=== PATIENT | female | born 1950 | race Caucasian/White ===

== ENCOUNTER → 2016-11-20 | Outpatient (CLI) | payer OTHER ==
--- NOTE | 2016-11-21 09:36 | MM ---
Reason for exam: screening (asymptomatic). Last mammogram was performed 1 year ago. History: Patient is postmenopausal, has history of breast cancer at age 44, and is nulliparous. Implant in the left breast, July 2010. Saline implant in the left breast, November 1995. Mastectomy of the left breast, 1994. Excisional biopsy of the left breast. Took hormonal contraceptives for 5 years beginning at age 30. Physical Findings: A clinical breast exam by your physician is recommended on an annual basis and results should be correlated with mammographic findings. MG 3D Scr Toby Unilateral W/Cad CC, MLO, and XCCL view(s) were taken of the right breast. Prior study comparison: November 09, 2015, right breast MG 3d diag mammo w/cad RT. November 08, 2014, right breast MG diagnostic mammo RT w CAD. The breast tissue is heterogeneously dense. This may lower the sensitivity of mammography. No significant changes when compared with prior studies. ASSESSMENT: Benign, BI-RAD 2 RECOMMENDATION: Routine screening mammogram of the right breast in 1 year.
== END | disposition home or self-care (01) ==
LOC: RADMAMWWP 11:00
PROVIDERS: ATTEND Family Medicine
DX: Z12.31 Encounter for screening mammogram for malignant neoplasm of breast (principal); Z80.3 Family history of malignant neoplasm of breast; Z98.82 Breast implant status
CPT/HCPCS: 77063; G0202

== ENCOUNTER → 2018-03-04 | Outpatient (CLI) | payer OTHER ==
--- NOTE | 2018-03-05 14:05 | MM ---
Reason for exam: screening (asymptomatic). Last mammogram was performed 1 year and 3 months ago. History: Patient is postmenopausal, has history of breast cancer at age 44, and is nulliparous. Implant in the left breast, July 2010. Saline implant in the left breast, November 1995. Mastectomy of the left breast, 1994. Excisional biopsy of the left breast. Took hormonal contraceptives for 5 years beginning at age 30. Physical Findings: A clinical breast exam by your physician is recommended on an annual basis and results should be correlated with mammographic findings. MG Screen Toby Unilateral W/Cad Bilateral CC and MLO view(s) were taken. Prior study comparison: November 20, 2016, right breast MG 3d scr toby unilateral w/cad. November 09, 2015, right breast MG 3d diag mammo w/cad RT. The breast tissue is heterogeneously dense. This may lower the sensitivity of mammography. No suspicious abnormality. ASSESSMENT: Negative, BI-RAD 1 RECOMMENDATION: Routine screening mammogram of both breasts in 1 year.
== END | disposition home or self-care (01) ==
LOC: RADMAMWWP 12:58
PROVIDERS: ATTEND Family Medicine
DX: Z12.31 Encounter for screening mammogram for malignant neoplasm of breast (principal); Z90.12 Acquired absence of left breast and nipple
CPT/HCPCS: 77067

== ENCOUNTER 2018-09-09 12:13 | Day surgery (SDC) | payer MEDICARE, OTHER ==
[2018-09-05 15:15] VITALS: BMI 21.7
[~2018-09-09 12:13] MED LIST: LACTATED RINGERS 1,000 ML IV SCH; LIDOCAINE 1% 20 ML VIAL (10MG/ML) FOR IV START INTRADERMA PRN; MIDAZOLAM (PF) 2 MG/2 ML VIAL IV PRN
[2018-09-09 13:07] VITALS: TEMP 98
[2018-09-09] MEDS ORDERED: PROPOFOL 10 MG/ML 20 ML VIAL IV ONE (14:02)
[2018-09-09 14:36] VITALS: RESP 16
[2018-09-09 14:57] VITALS: PULSE 73
[2018-09-09] MEDS ORDERED: ENALAPRILAT 1.25 MG/ML 1 ML VIAL IV ONE (15:19)
--- NOTE | 2018-09-09 15:30 | P.PCN ---
Date of Procedure: 09/09/18 Procedure(s) Performed: Procedure: Total colonoscopy. Preoperative diagnosis: History of polyps. Postoperative diagnosis: Less than ideal preparation, however, exam to the cecum within normal limits. Preparation: HalfLytely prep. Sedation: Was provided by anesthesia. Brief clinical history: The patient is a 67-year-old female who is scheduled for this evaluation because of history of flat tubular adenoma that was removed piecemeal by snare polypectomy in August 2017. That was during her hospitalization for severe segmental colitis that involved the sigmoid from 20- 40 cm. The patient was recommended repeat exam in one year. She is doing well at this time. Procedure: With the patient on her left lateral decubitus position and after informed consent and adequate sedation, the perianal area was inspected and it did not show any fissures or fistulas. There were no masses felt on digital rectal examination. The Olympus CFH 190L video colonoscope was then inserted in the rectum in the usual fashion and advanced to the cecum. Unfortunately, the preparation was poor and I spent a significant amount of time cleansing the bowel wall. I was satisfied that the right colon was cleansed thoroughly and I did not see any residual polyp tissue or new polyps. Because of the poor preparation, I cannot rule out with certainty the presence of small polyps or superficial pathology on this exam. No obvious large polyps, tumors or diverticular disease or any obvious abnormalities were noted. I retroflexed the endoscope in the rectum before the endoscope was withdrawn. The patient tolerated the procedure well. Plan: I summarized the findings to the patient and her . I am recommending repeat exam in 2-3 years and would consider a 2 day prep at that time.
[2018-09-09 15:45] VITALS: BP 128/71
== END 2018-09-09 15:56 | disposition home or self-care (01) ==
LOC: ORWHC2ENDO 12:13
DX: Z12.11 Encounter for screening for malignant neoplasm of colon (principal); K21.9 Gastro-esophageal reflux disease without esophagitis; E78.5 Hyperlipidemia, unspecified; M19.90 Unspecified osteoarthritis, unspecified site; F32.9 Major depressive disorder, single episode, unspecified; F41.9 Anxiety disorder, unspecified; Z79.899 Other long term (current) drug therapy; Z96.643 Presence of artificial hip joint, bilateral; Z88.5 Allergy status to narcotic agent; Z91.041 Radiographic dye allergy status; Z79.891 Long term (current) use of opiate analgesic; Z86.010 Personal history of colon polyps
CPT/HCPCS: J2704; G0105; 45378

== ENCOUNTER → 2019-03-25 | Outpatient (CLI) | payer MEDICARE ==
--- NOTE | 2019-03-25 22:01 | BD ---
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 Menopause before 45: YES RISK FACTORS HISTORY OF: Surgery to Spine/Hip(right/left)/Wrist (right/left): COLE HIP REPLACEMENT When: 2017 AND 2012 Family History of Osteoporosis: YES Active: YES Postmenopausal woman: AGE 47 MEDICATIONS: Additional Medications: PRILOSEC, ZOCOR, PAXIL Additional History: EXAM MEASUREMENTS: Bone mineral densitometry was performed using the [employer] System. Bone mineral density as measured about the Lumbar spine is: ----- L1-L4(G/cm2): 1.239 T Score Values are as follows: ----- L2: -0.5 ----- L3: 1.3 ----- L4: 1.6 ----- L1-L4: 0.5 Bone mineral density has: INCREASED 4.3 % since study of: 2016 Bone mineral density about the L Wrist (g/cm2): 0.442 T Score values are as follows: -----Dist. R+U: -2.9 -----Prox. R+U: -2.5 -----Radius total: -3.9 FIRST TIME WRIST HAS BEEN DONE IMPRESSION: Osteoporosis (T Score less than -2.5) as indicated by T score values in the left wrist. There is increased fracture risk and therapy is usually indicated based on age. Re-Screen 1-2 years. NOTE: T-SCORE=SD OF THE YOUNG ADULT MEAN.
--- NOTE | 2019-03-27 07:56 | MM ---
Reason for exam: screening (asymptomatic). Last mammogram was performed 1 year and 1 month ago. History: Patient is postmenopausal, has history of breast cancer at age 44, and is nulliparous. Implant in the left breast, July 2010. Saline implant in the left breast, November 1995. Mastectomy of the left breast, 1994. Excisional biopsy of the left breast. Took hormonal contraceptives for 5 years beginning at age 30. Physical Findings: A clinical breast exam by your physician is recommended on an annual basis and results should be correlated with mammographic findings. MG Screen Toby Unilateral W/Cad Bilateral CC and MLO view(s) were taken. Prior study comparison: March 04, 2018, MG screen toby unilateral w/cad. November 20, 2016, right breast MG 3d scr toby unilateral w/cad. The breast tissue is heterogeneously dense. This may lower the sensitivity of mammography. No significant changes when compared with prior studies. ASSESSMENT: Negative, BI-RAD 1 RECOMMENDATION: Follow-up diagnostic mammogram of the right breast in 1 year.
== END | disposition home or self-care (01) ==
LOC: RADMAMWWP 14:29
PROVIDERS: ATTEND Family Medicine
DX: Z12.31 Encounter for screening mammogram for malignant neoplasm of breast (principal); M81.0 Age-related osteoporosis without current pathological fracture
CPT/HCPCS: 77067; 77080

== ENCOUNTER → 2020-03-04 | Outpatient (CLI) | payer MEDICARE ==
[2020-03-04 11:06] LABS: HCT 42.9 % (34.0-46.0); HGB 14.1 gm/dL (11.4-16.0); MCH 29.9 pg (25.0-35.0); MCHC 32.8 g/dL (31.0-37.0); MCV 91.2 fL (80.0-100.0); Mean Platelet Volume 6.3; Platelet Count 306 k/uL (150-450); RDW 12.4 % (11.5-15.5); WBC 9.3 k/uL (3.8-10.6)
[2020-03-04 16:53] LABS: African American GFR (CKD) 103.9 (60.0-200.0); Albumin/Globulin Ratio 2.63 (1.60-3.17); Anion Gap 11.3 mmol/L (4.00-12.00); BUN/Creat Ratio 24.29 Ratio (12.00-20.00); Carbon Dioxide 25.7 mmol/L (21.6-31.8); Chol/HDL Ratio 3.17; Globulin 1.9 g/dL (1.6-3.3); LDL Cholesterol,Calculated 68.2 mg/dL (0.0-131.0); Non-African American GFR(CKD) 89.7 (60.0-200.0); Potassium 4.4 mmol/L (3.5-5.5); Total Protein 6.9 g/dL (6.2-8.2); VLDL Calculation 33.8 mg/dL (5.00-40.00)
== END | disposition home or self-care (01) ==
LOC: LABWHC1 09:09
PROVIDERS: ATTEND Family Medicine
DX: Z00.00 Encounter for general adult medical examination without abnormal findings (principal); E78.00 Pure hypercholesterolemia, unspecified; Z13.220 Encounter for screening for lipoid disorders
CPT/HCPCS: 36415; 80053; 80061; 84443; 85027

== ENCOUNTER → 2020-04-08 | Outpatient (CLI) | payer MEDICARE ==
--- NOTE | 2020-04-08 11:48 | MM ---
Reason for exam: clinical finding. Last mammogram was performed 1 year ago. History: Patient is postmenopausal, has history of breast cancer at age 44, and is nulliparous. Implant in the left breast, July 2010. Saline implant in the left breast, November 1995. Mastectomy of the left breast, 1994. Excisional biopsy of the left breast. Took hormonal contraceptives for 5 years beginning at age 30. Physical Findings: Nurse Summary: 0.5 x 0.5cm nodule in the right breast at 10 o'clock (nurse ts). MG 3D Diag Mammo W/Cad RT CC, MLO, and XCCL view(s) were taken of the right breast. Prior study comparison: March 25, 2019, bilateral MG screen sonali unilateral w/cad. March 04, 2018, MG screen sonali unilateral w/cad. The breast tissue is heterogeneously dense. This may lower the sensitivity of mammography. There is no discrete abnormality including area of concern. These results were verbally communicated with the patient and result sheet given to the patient on 04/08/20. ASSESSMENT: Incomplete: need additional imaging evaluation, BI-RAD 0 RECOMMENDATION: Ultrasound of the right breast. Manage patient on a clinical basis.
--- NOTE | 2020-04-08 11:49 | USB ---
Reason for exam: additional evaluation requested from abnormal screening. History: Patient is postmenopausal, has history of breast cancer at age 44, and is nulliparous. Implant in the left breast, July 2010. Saline implant in the left breast, November 1995. Mastectomy of the left breast, 1994. Excisional biopsy of the left breast. Took hormonal contraceptives for 5 years beginning at age 30. US Breast Limited RT Right limited breast ultrasound including focal area of concern, retroareolar and axilla demonstrates no cystic or solid lesion seen. These results were verbally communicated with the patient and result sheet given to the patient on 04/08/20. ASSESSMENT: Negative, BI-RAD 1 RECOMMENDATION: Follow-up diagnostic mammogram of the right breast in 1 year.
== END | disposition home or self-care (01) ==
LOC: RADMAMWWP 10:17
PROVIDERS: ATTEND Family Medicine
DX: N63.31 Unspecified lump in axillary tail of the right breast (principal)
CPT/HCPCS: 77065; 76642; G0279; 77061

== ENCOUNTER → 2020-09-27 | Outpatient (CLI) | payer MEDICARE ==
--- NOTE | 2020-09-27 15:06 | MR ---
EXAMINATION TYPE: MR cervical spine wo con DATE OF EXAM: 09/27/2020 COMPARISON: None HISTORY: Neck pain, LUE weakness, limited ROM CONTRAST: Performed utilizing 0 mL intravenous gadolinium contrast. TECHNIQUE: Multiplanar multiecho imaging on a 3.0 Charis magnet is performed through the cervical spin e. FINDINGS: The craniovertebral junction is normal. There is a mild retrolisthesis of C5 on C6 and C6 o n C7. Disc uncovering at these levels has moderate anterior thecal sac compression. Cord contact is p resent. Cord deformity is not evident. Degenerative disc changes and loss of disc height is present C5-6 C6-7. There is mild disc bulging C2-C3 with left paracentral thecal sac compression. No cord contact is norm dent. Small central protrusion is present C4-5 with anterior thecal sac contact. No cord contact or s prieto canal stenosis is present Uncovertebral joint hypertrophy is present C6-7 with bilateral moderate foraminal narrowing. IMPRESSIONS: 1. Grade 1 retrolisthesis of C5 on C6 and C6 on C7. 2. Disc uncovering at C5-6 C6-7 has moderate anterior thecal sac compression. Cord contact is present C5-6 without cord deformity. 3. Degenerative disc changes C5-6 and C6-7. 4. Moderate Foraminal narrowing predominantly C6-7 due to uncovertebral joint hypertrophy.
== END | disposition home or self-care (01) ==
LOC: RADMRIMAIN 11:07
PROVIDERS: ATTEND Orthopaedic Surgery
DX: M48.02 Spinal stenosis, cervical region (principal); M43.12 Spondylolisthesis, cervical region; M50.322 Other cervical disc degeneration at C5-C6 level; G95.29 Other cord compression; M89.38 Hypertrophy of bone, other site
CPT/HCPCS: 72141

== ENCOUNTER → 2021-04-27 | Outpatient (CLI) | payer MEDICARE ==
--- NOTE | 2021-04-28 14:12 | MM ---
Reason for exam: additional evaluation requested from prior study. Last mammogram was performed 1 year and 1 month ago. History: Patient is postmenopausal, has history of breast cancer at age 44, and is nulliparous. Implant in the left breast, July 2010. Saline implant in the left breast, November 1995. Mastectomy of the left breast, 1994. Excisional biopsy of the left breast. Took hormonal contraceptives for 5 years beginning at age 30. Physical Findings: Nurse did not find any significant physical abnormalities on exam. MG 3D Diag Mammo W/Cad RT CC and MLO view(s) were taken of the right breast. Prior study comparison: April 08, 2020, right breast MG 3d diag mammo w/cad RT. March 25, 2019, bilateral MG screen sonali unilateral w/cad. March 04, 2018, MG screen sonali unilateral w/cad. November 20, 2016, right breast MG 3d scr sonali unilateral w/cad. The breast tissue is heterogeneously dense. This may lower the sensitivity of mammography. Subareolar right MLO asymmetric density disperses on additional views. These results were verbally communicated with the patient and result sheet given to the patient on 04/27/21. ASSESSMENT: Negative, BI-RAD 1 RECOMMENDATION: Follow-up diagnostic mammogram of the right breast in 1 year.
== END | disposition home or self-care (01) ==
LOC: RADMAMWWP 15:02
PROVIDERS: ATTEND Family Medicine
DX: N63.31 Unspecified lump in axillary tail of the right breast (principal)
CPT/HCPCS: 77065; G0279; 77061

== ENCOUNTER → 2021-06-07 | Outpatient (CLI) | payer MEDICARE ==
--- NOTE | 2021-06-07 13:26 | BD ---
EXAMINATION TYPE: Axial Bone Density DATE OF EXAM: 06/07/2021 COMPARISON: 03/25/2019 CLINICAL HISTORY: Height: 60.5 IN Weight: 117 LBS FRAX RISK QUESTIONS: History of Fracture in Adulthood: LT SHOULDER 2015 Secondary Osteoporosis: 3. Menopause before 45: AGE 45 RISK FACTORS HISTORY OF: Surgery to Hip(COLE): When: 2012 AND 2017 Family History of Osteoporosis: MOTHER/ AUNTS, GRANDMOTHER Active: YES Postmenopausal woman: AGE 44 MEDICATIONS: Osteoporosis Medications: NOT NOW Which medication: Fosamax How Lon YEARS Additional Medications: CALCIUM, CENTRUM SILVER, FISH OIL, TYLENOL ARTHRITIS, PRILOSEC,ZOCOR, AMBERON Additional History: BREAST CANCER AGE 44 EXAM MEASUREMENTS: Bone mineral densitometry was performed using the [employer] System. Bone mineral density as measured about the Lumbar spine is: ----- L1-L4(G/cm2): 1.267 T Score Values are as follows: ----- L2: 0.6 ----- L3: 1.2 ----- L4: 1.2 ----- L1-L4: 0.7 Bone mineral density has: Increased 1.6% since study of: 03/25/2019 Bone mineral density about the L Wrist (g/cm2): 0.422 T Score values are as follows: -----Dist. R+U: -4.4 -----Prox. R+U: -3.1 -----Radius total: -4.2 Bone mineral density has: Decreased -8.2% since study of: 03/25/2019 IMPRESSION: Osteoporosis about the wrist. NOTE: T-SCORE=SD OF THE YOUNG ADULT MEAN.
== END | disposition home or self-care (01) ==
LOC: RADBDWWP 10:41
PROVIDERS: ATTEND Family Medicine
DX: M81.0 Age-related osteoporosis without current pathological fracture (principal)
CPT/HCPCS: 77080

== ENCOUNTER → 2021-06-20 | Outpatient (CLI) | payer MEDICARE ==
--- NOTE | 2021-06-20 15:10 | ECHOS ---
STRESS ECHOCARDIOGRAM DATE OF SERVICE: 06/20/21 INDICATIONS: Chest pain BASELINE HEART RATE: 83 BASELINE BLOOD PRESSURE: 121/66 MAXIMUM HEART RATE: 145 MAXIMUM BLOOD PRESSURE: 169/79 85% MPHR: 129 100% MPHR: 152 METS: 6.1 MAXIMUM STAGE REACHED: 3 TOTAL EXERCISE TIME: 8 min 3 sec RESULTS: Baseline rhythm is sinus mechanism, rate of 83, normal axis and intervals. Occasional PVCs. Nonspecific ST-T wave changes. Baseline blood pressure 121/61mmHg. Patient exercised on Zac protocol for 8 minutes 3 seconds reaching peak rate of 145 beats per minute which is equal to 95% of maximum predicted heart rate. Peak blood pressure 169/79 mmHg. Test was terminated secondary to fatigue. There were no chest pain. Electrocardiograph monitoring revealed no evidence of diagnostic ischemic ST deviation. Frequent single PVCs were noted. FINDINGS: Baseline echocardiogram revealed normal wall thickening and motion. At peak exercise, there was normal wall motion augmentation with no hypokinesis or dyskinesis. CONCLUSION: 1. Average exercise tolerance with normal electrographic response to exercise and frequent single PVCs. 2. Normal stress echocardiogram with no evidence of stress-induced ischemia. MMODL / IJN: [id number] /
== END | disposition home or self-care (01) ==
LOC: RADNMMAIN 09:03
PROVIDERS: ATTEND Family Medicine
DX: R07.9 Chest pain, unspecified (principal)
CPT/HCPCS: 93351

== ENCOUNTER → 2022-04-12 | Outpatient (CLI) | payer MEDICARE | END | disposition home or self-care (01) | LOC: LABWHC1 14:38 | PROVIDERS: ATTEND Family Medicine | DX: G47.01 Insomnia due to medical condition (principal); M81.0 Age-related osteoporosis without current pathological fracture | CPT/HCPCS: 36415; 82306; 82607 ==

== ENCOUNTER → 2022-05-02 | Outpatient (CLI) | payer MEDICARE ==
--- NOTE | 2022-05-02 11:40 | MM ---
Reason for Exam: Follow-up at short interval from prior study. Last mammogram was performed 1 year(s) and 1 month(s) ago. Patient History: Menarche at age 15. Patient has no children. Postmenopausal. Breast cancer, age 44. Hormonal Contraceptives for 5 years from age 30 until age 35. 1994, Mastectomy on the Left side. Excisional Biopsy on the Left side. 07/2010, Implant on the left side. 11/1995, Implant on the left side. Prior Study Comparison: 03/25/2019 Bilateral Screening Mammogram, [facility]. 04/08/2020 Right Diagnostic Mammogram, [facility]. 04/27/2021 Right Diagnostic Mammogram, [facility]. Tissue Density: Right: The breast tissue is heterogeneously dense. This may lower the sensitivity of mammography. Findings: Analyzed By CAD. No significant change from prior exams. Overall Assessment: Negative, BI-RAD 1 Management: Screening Mammogram of the right breast in 1 year. 1. Patient should continue monthly self breast exams. 2. A clinical breast exam by your physician is recommended on an annual basis. 3. This exam should not preclude additional follow-up of suspicious palpable abnormalities. Results were given to the patient verbally at the time of exam. Electronically signed and approved by: Delicia Mariscal M.D. Radiologist
== END | disposition home or self-care (01) ==
LOC: RADMAMWWP 10:56
PROVIDERS: ATTEND Family Medicine
DX: R92.8 Other abnormal and inconclusive findings on diagnostic imaging of breast (principal); Z78.0 Asymptomatic menopausal state
CPT/HCPCS: 77065; G0279; 77061

== ENCOUNTER → 2022-06-05 | Outpatient (CLI) | payer MEDICARE ==
--- NOTE | 2022-06-05 11:39 | US ---
EXAMINATION TYPE: US carotid duplex BILAT DATE OF EXAM: 06/05/2022 COMPARISON: US 2011. CLINICAL HISTORY: H53.122 TRANSIENT VISUAL LOSS, LEFT EYE. Transient vision loss within the left eye. Prior smoker. Hyperlipidemia. TECHNIQUE: Carotid duplex ultrasound examination. Indirect Doppler criteria was utilized. FINDINGS: EXAM MEASUREMENTS: RIGHT: Peak Systolic Velocity (PSV) cm/sec ----- Right CCA: 94.1 ----- Right ICA: 96.0 ----- Right ECA: 89.4 ICA/CCA ratio: 1.0 RIGHT: End Diastole cm/sec ----- Right CCA: 27.0 ----- Right ICA: 29.9 ----- Right ECA: 12.7 LEFT: Peak Systolic Velocity (PSV) cm/sec ----- Left CCA: 74.3 ----- Left ICA: 108.2 ----- Left ECA: 73.8 ICA/CCA ratio: 1.5 LEFT: End Diastole cm/sec ----- Left CCA: 21.5 ----- Left ICA: 37.0 ----- Left ECA: 11.0 VERTEBRALS (direction of flow): Right Vertebral: Antegrade Left Vertebral: Antegrade Rhythm: Normal LEAD REFINERY SUPERVISOR NOTES: No elevated velocities at this time. Plaque seen within bilateral carotid bulbs, b ilateral ICA, and bilateral ECA. Incidental finding: Mostly anechoic area with echogenic focus seen within the right thyroid lobe: 1.2 x 1.2 x 0.7 cm. Consistent with thin-walled cystic nodule in the right thyroid lobe IMPRESSION: No hemodynamically significant stenosis either internal carotid artery. Criteria for Assigning % of Stenosis / Diameter reduction (Estimation based on the indirect measurements of the internal carotid artery velocities (ICA PSV). 1. Normal (no stenosis)=ICA PSV < 125 cm/s: ratio < 2.0: ICA EDV<40 cm/s. 2. Less than 50% stenosis=ICA PSV < 125 cm/s: ratio < 2.0: ICA EDV<40 cm/s. 3. 50 to 69% stenosis=ICA PSV of 125 to 230 cm/s: ration 2.0 ? 4.0: ICA EDV 40-100 cm/s. 4. Greater than 70% stenosis to near occlusion= ICA PSV > 230 cm/s: ratio > 4.0: ICA EDV > 100 cm/s. 5. Near occlusion= ICA PSV velocities may be low or undetectable: variable ratio and ICA EDV. 6. Total occlusion=unable to detect flow.
== END | disposition home or self-care (01) ==
LOC: RADUSWWP 10:49
PROVIDERS: ATTEND Ophthalmology
DX: H53.122 Transient visual loss, left eye (principal)
CPT/HCPCS: 93880

== ENCOUNTER → 2022-06-27 | Outpatient (CLI) | payer MEDICARE ==
--- NOTE | 2022-06-27 11:57 | CA ---
Transthoracic Echo Report Name: Cirilo Tucker Age: 71 Gender: F : 1950 Exam Date: 06/27/2022 11:13 Exam Location: [facility] Ht (in): 61 Wt (lb): 115 Ordering Physician: German Pryor MD Attending/Referring Phys: Gift Shop Assistant Christine Beasley RDCS Procedure CPT: Indications: H53.122 transient vision loss Cardiac Hx: Breast Inplants Technical Quality: Good Contrast 1: Total Dose (mL): Contrast 2: Total Dose (mL): MEASUREMENTS (Male / Female) Normal Values 2D ECHO LV Diastolic Diameter PLAX 3.7 cm 4.2 - 5.9 / 3.9 - 5.3 cm LV Systolic Diameter PLAX 3.2 cm IVS Diastolic Thickness 1.0 cm 0.6 - 1.0 / 0.6 - 0.9 cm LVPW Diastolic Thickness 1.1 cm 0.6 - 1.0 / 0.6 - 0.9 cm LV Relative Wall Thickness 0.6 RV Internal Dim ED PLAX 2.3 cm M-MODE Aortic Root Diameter MM 2.7 cm LA Systolic Diameter MM 2.6 cm LA Ao Ratio MM 1.0 MV E Point Septal Separation 0.5 cm AV Cusp Separation MM 2.0 cm DOPPLER MV Area PHT 3.0 cm??? Mitral E Point Velocity 51.8 cm/s Mitral A Point Velocity 56.7 cm/s Mitral E to A Ratio 0.9 MV Deceleration Time 254.8 ms MV E' Velocity 5.1 cm/s Mitral E to MV E' Ratio 10.1 TR Peak Velocity 225.0 cm/s TR Peak Gradient 20.3 mmHg Right Ventricular Systolic Press 25.3 mmHg FINDINGS Left Ventricle Normal left ventricular size, wall thickness, systolic function with no obvious regional wall motion abnormalities. Ejection fraction appears to be in the range of 55% Right Ventricle The right ventricle is normal in size and function. Right Atrium The right atrium is normal in size. Left Atrium The left atrium is normal in size. Mitral Valve Structurally normal mitral valve without significant stenosis or prolapse. There is mild mitral regurgitation. Aortic Valve Structurally normal aortic valve without significant sclerosis or stenosis. There is no aortic regurgitation. Tricuspid Valve Structurally normal tricuspid valve without significant stenosis. Pulmonary artery systolic pressure is normal. Pulmonic Valve Structurally normal pulmonic valve without significant stenosis. There is no pulmonic regurgitation. Pericardium Normal pericardium without effusion. Aorta Normal aortic root dimension. CONCLUSIONS Normal left ventricular dimension and systolic function Mild mitral valve prolapse was mild mitral regurgitation Previewed by: Dr. Lul Mccray MD (Electronically Signed) Final Date: 27 June 2022 11:56
== END | disposition home or self-care (01) ==
LOC: RADECHMAIN 11:11
PROVIDERS: ATTEND Ophthalmology
DX: I34.1 Nonrheumatic mitral (valve) prolapse (principal)
CPT/HCPCS: 93306

== ENCOUNTER → 2022-08-27 | Outpatient (CLI) | payer MEDICARE ==
--- NOTE | 2022-08-27 16:04 | US ---
EXAMINATION TYPE: US kidneys/renal and bladder DATE OF EXAM: 08/27/2022 COMPARISON: CT abdomen and pelvis 2017 CLINICAL HISTORY: R31.0 HEMATURIA. EXAM MEASUREMENTS: Right Kidney: 10.0 x 3.1 x 4.3 cm Left Kidney: 9.9 x 5.0 x 4.2 cm Right Kidney: wnl Left Kidney: wnl Bladder: wnl Bilateral Jets seen: Right jet not visualized. Left jet visualized There is no evidence for hydronephrosis at this point in time. No nephrolithiasis is seen. No romeo s are identified. The urinary bladder is adequately distended. IMPRESSION: Source of hematuria not identified. If symptoms persist further investigation with CT uro gram would be warranted.
== END | disposition home or self-care (01) ==
LOC: RADUSWWP 15:26
PROVIDERS: ATTEND Family Medicine
DX: R31.0 Gross hematuria (principal)
CPT/HCPCS: 76770

== ENCOUNTER → 2023-05-07 | Outpatient (CLI) | payer MEDICARE ==
--- NOTE | 2023-05-07 16:06 | US ---
EXAMINATION TYPE: US venous doppler duplex LE RT DATE OF EXAM: 05/07/2023 3:34 PM COMPARISON: NONE CLINICAL INDICATION: Female, 72 years old with history of I80.9 THROMBOPHLEBITIS M25.561 PAIN IN RIGH T KNEE; SIDE PERFORMED: right TECHNIQUE: The lower extremity deep venous system is examined utilizing real time linear array sonog leo with graded compression, doppler sonography and color-flow sonography. VESSELS IMAGED: Common Femoral Vein Deep Femoral Vein Greater Saphenous Vein * Femoral Vein Popliteal Vein Small Saphenous Vein * Proximal Calf Veins (* superficial vessels) Right Leg: neg for RLE dvt Results called to Priscila in the office at the time of the exam. IMPRESSION: Grayscale, color doppler, spectral doppler imaging performed of the deep veins of the lo wer extremities. There is normal flow, compressibility, vascular waveforms.
== END | disposition home or self-care (01) ==
LOC: RADUSWWP 15:11
PROVIDERS: ATTEND Orthopaedic Surgery
DX: I80.9 Phlebitis and thrombophlebitis of unspecified site (principal); S82.041D Displaced comminuted fracture of right patella, subsequent encounter for closed fracture with routine healing

== ENCOUNTER → 2023-06-11 | Outpatient (CLI) | payer MEDICARE ==
--- NOTE | 2023-06-11 11:14 | MM ---
Reason for Exam: Additional evaluation requested from abnormal screening. Last mammogram was performed 1 year(s) and 1 month(s) ago. Patient History: Menarche at age 15. Patient has no children. Postmenopausal. Breast cancer, left, age 44. Hormonal Contraceptives for 5 years from age 30 until age 35. 1994, Mastectomy on the Left side. Excisional Biopsy on the Left side. 07/2010, Implant on the left side. 11/1995, Implant on the left side. Prior Study Comparison: 11/09/2015 Right Diagnostic Mammogram, [facility]. 11/20/2016 Right Screening Mammogram, [facility]. 03/04/2018 Screening Mammogram, [facility]. 03/25/2019 Bilateral Screening Mammogram, [facility] 04/08/2020 Right Diagnostic Mammogram, [facility]. 04/27/2021 Right Diagnostic Mammogram, [facility]. 05/02/2022 Right MG 3D diag mammo w/cad RT, [facility]. Tissue Density: Right: The breast tissue is heterogeneously dense. This may lower the sensitivity of mammography. Findings: Analyzed By CAD. No significant mass, suspicious microcalcification, or other discrete abnormality is seen. Overall Assessment: Negative, BI-RAD 1 Management: Screening Mammogram of the right breast in 1 year. . Results were given to the patient verbally at the time of exam. Patient should continue monthly self-breast exams. A clinical breast exam by your physician is recommended on an annual basis. This exam should not preclude additional follow-up of suspicious palpable abnormalities. Electronically signed and approved by: Delicia Mariscal M.D. Radiologist
--- NOTE | 2023-06-11 18:44 | BD ---
EXAMINATION TYPE: Axial Bone Density DATE OF EXAM: 06/11/2023 CLINICAL HISTORY: 72 years old Female. ICD-10 CODE: M81.0 AGE-RELATED OSTEOPOR Height: 61 Weight: 113.9 FRAX RISK QUESTIONS: Alcohol (3 or more units per day): no Family History (Parent hip fracture): no Glucocorticoids (More than 3mos): no (Ex: prednisone, prednisolone, methylprednisolone, dexamethasone, and hydrocortisone). History of Fracture in Adulthood: yes Secondary Osteoporosis: 1. Type 1 Diabetes: no 2. Hyperthyroidism: no 3. Menopause before 45: yes 4. Malnutrition: no 5. Chronic liver disease: no Rheumatoid Arthritis: no Current Tobacco Use: no RISK FACTORS HISTORY OF: Surgery to Spine/Hip(right/left)/Wrist (right/left): bilateral hip replacements When: Family History of Osteoporosis: yes Active: yes Diet low in dairy products/other sources of calcium: no Postmenopausal woman: yes Lost more than 2 inches in height since high school: no MEDICATIONS: Additional History: EXAM MEASUREMENTS: Bone mineral densitometry was performed using the [employer]. Bone mineral density as measured about the Lumbar spine is: ----- L1-L4(G/cm2): 1.293 T Score Values are as follows: ----- L1: -0.4 ----- L2: 0.7 ----- L3: 1.5 ----- L4: 1.6 ----- L1-L4: 0.9 Z Score Values are as follows: ----- L1: 1.7 ----- L2: 2.8 ----- L3: 3.7 ----- L4: 3.7 ----- L1-L4: 3.1 Bone mineral density has: increased 2.1 % since study of: 06.07.2021 Bone mineral density about the L Wrist (g/cm2): 0.425 T Score values are as follows: -----Dist. R+U: -4.2 -----Prox. R+U: -3.2 -----Radius total: -4.1 Z Score values are as follows: -----Dist. R+U: -2.3 -----Prox. R+U: -1.4 -----Radius total: -2.3 Bone mineral density has: decreased -1.2 % since study of: 9.8.2020 IMPRESSION: Osteoporosis (T Score less than -2.5). There is increased fracture risk and therapy is usually indicated based on age. Re-Screen 1-2 years. NOTE: T-SCORE=SD OF THE YOUNG ADULT MEAN.
== END | disposition home or self-care (01) ==
LOC: RADBDWWP 09:55
PROVIDERS: ATTEND Family Medicine
DX: R92.8 Other abnormal and inconclusive findings on diagnostic imaging of breast (principal); M81.0 Age-related osteoporosis without current pathological fracture; Z85.3 Personal history of malignant neoplasm of breast; Z78.0 Asymptomatic menopausal state
CPT/HCPCS: 77080; 77065; G0279; 77061

== ENCOUNTER 2024-01-28 08:43 | Day surgery (SDC) | payer MEDICARE ==
[2024-01-27 09:17] VITALS: BMI 20.7
[~2024-01-28 08:43] MED LIST changes: -LIDOCAINE 1% 20 ML VIAL (10MG/ML) FOR IV START INTRADERMA PRN; -MIDAZOLAM (PF) 2 MG/2 ML VIAL IV PRN
[2024-01-28] MEDS: LACTATED RINGERS 1,000 ML IV ONE ×2 (09:36→10:09)
[2024-01-28] MEDS ORDERED: LIDOCAINE 1% INJ 10MG/ML (20 ML MDV) ONE (10:11)
[2024-01-28] MEDS ORDERED: PROPOFOL 10 MG/ML 20 ML VIAL IV ONE (10:11)
[2024-01-28 10:21] VITALS: TEMP 97.1
--- NOTE | 2024-01-28 10:33 | P.PCN ---
Date of Procedure: 01/28/24 Procedure(s) Performed: Brief history: Patient is a pleasant 73-year-old white female scheduled for an elective upper endoscopy as well as colonoscopy as a part of evaluation of abdominal pain, change in bowel habits and progressive weight loss of 10 pounds in the last 1 year duration. Procedure performed: Esophagogastroduodenoscopy with biopsy Colonoscopy Preoperative diagnosis: Abdominal pain, change in bowel habits, weight loss Anesthesia: [facility] Procedure: After informed consent was obtained from the patient was brought into the endoscopy unit and IV sedation was administered by anesthesia under continuous monitoring. Initially upper endoscopy was done. The Olympus GF 160 video endoscope was inserted inserted into the mouth and esophagus intubated without any difficulty and was gradually advanced into the stomach and duodenum and carefully examined. The bulb and second part of the duodenum appeared normal. Biopsies were done from the duodenum to evaluate for celiac disease. The scope was then withdrawn into the stomach adequately insufflated with air and upon careful examination the antrum had mild gastritis and biopsies were done from this area. Mucosa of the body, cardia and fundus appeared normal. The scope was then withdrawn into the esophagus. The GE junction was located at 40 cm to the incisors. It appeared regular with no erythema erosions or ulcerations. Rest of the esophagus appeared normal. Patient tolerated the procedure well. At this time the patient continued to remain sedation. Initial digital rectal examination was normal. Olympus CF 160 video colonoscope was then inserted into the rectum and gradually advanced to the cecum without any difficulty. Careful examination was performed as the scope was gradually being withdrawn. The prep was fair.. The cecum, ascending colon, transverse colon, descending colon, sigmoid colon and rectum appeared normal. Retroflexion was performed in the rectum and no lesions were noted. Patient tolerated the procedure well. Impression: 1. Upper endoscopy revealed mild antral gastritis but no evidence of esophagitis or peptic ulcer disease 2. Colonoscopy was within normal limits with no evidence of colorectal neoplasia Recommendations: Findings of this examination were discussed with the patient as well as her family. She was advised to follow-up with the biopsy biopsy results. Recommended repeat screening colonoscopy in 10 years.
[2024-01-28 11:06] VITALS: BP 137/73; PULSE 77
[2024-01-28 11:07] VITALS: RESP 18
== END 2024-01-28 11:12 | disposition home or self-care (01) ==
LOC: ORWHC2ENDO 08:43
PROVIDERS: ATTEND Internal Medicine Gastroenterology
DX: K29.70 Gastritis, unspecified, without bleeding (principal); R19.4 Change in bowel habit; E78.5 Hyperlipidemia, unspecified; K21.9 Gastro-esophageal reflux disease without esophagitis; Z79.899 Other long term (current) drug therapy; Z91.041 Radiographic dye allergy status; Z88.8 Allergy status to other drugs, medicaments and biological substances; Z88.5 Allergy status to narcotic agent; Z85.3 Personal history of malignant neoplasm of breast
CPT/HCPCS: 88305; 43239; 45378; J2001; J2704

== ENCOUNTER → 2024-06-16 | Outpatient (CLI) | payer MEDICARE ==
--- NOTE | 2024-06-18 10:45 | MM ---
Reason for Exam: Hx of breast cancer, conservation therapy. Last screening mammogram was performed 12 month(s) ago. Patient History: Menarche at age 15. Patient has no children. Postmenopausal. Breast cancer, left, age 44. Hormonal Contraceptives for 5 years from age 30 until age 35. 1994, Mastectomy on the Left side. Excisional Biopsy on the Left side. 07/2010, Implant on the left side. 11/1995, Implant on the left side. Prior Study Comparison: 04/27/2021 Right Diagnostic Mammogram, [facility]. 05/02/2022 Right MG 3D diag mammo w/cad RT, [facility]. 06/11/2023 Right MG 3D diag mammo w/cad RT, [facility]. Tissue Density: Right: The breasts are heterogeneously dense, which may obscure small masses. Findings: Right breast: There is no suspicious group of microcalcifications or new suspicious mass. Overall Assessment: Negative, BI-RAD 1 Management: Screening Mammogram of both breasts in [address] [facility] will attempt to contact patient to return for supplemental views and ultrasound if indicated. Patient should continue monthly self-breast exams. A clinical breast exam by your physician is recommended on an annual basis. This exam should not preclude additional follow-up of suspicious palpable abnormalities. Note on Sun scores and lifetime risk: 1. A Sun score greater than 3% is considered moderate risk. If this is the case, consider specialist referral to assess eligibility for a risk reducing agent. 2. If overall lifetime risk for the development of breast cancer is 20% or higher, the patient may qualify for future screening with alternating mammogram and breast MRI. [facility], , 06/18/2024 10:42 AM. Electronically signed and approved by: Jose Luis Plaza DO
== END | disposition home or self-care (01) ==
LOC: RADMAMWWP 13:10
PROVIDERS: ATTEND Family Medicine
CPT/HCPCS: 77067